=== PATIENT | female | born 1930 | race Caucasian/White ===

== ENCOUNTER 2017-10-10 14:31 | Emergency (ER) | payer OTHER ==
--- NOTE | 2017-10-10 15:21 | PDOC ---
History of Present Illness - General Chief Complaint: Lightheaded Stated Complaint: DEHYDRATION Time Seen by Provider: 10/10/17 15:12 - History of Present Illness Initial Comments: 10/10/17 18:24 The patient is an 87 year old female with a history of Dementia, Breast CA, Osteoarthritis who presents for evaluation from her [place] for dehydration. [facility] paperwork, the patient experienced an episode of lightheadedness and orthostatic hypotension at her NH home today and was sent to the ER for concerns for dehydration. The patient is uncooperative on exam and denies any current symptoms claiming she does not know why she was sent to the ED. The patient refuses to cooperate with history taking and review of systems at this time. Past History - Past Medical History Allergies/Adverse Reactions: Allergies Allergy/AdvReac Type Severity Reaction Status Date / Time No Known Allergies Allergy Verified 10/10/17 15:25 Review of Systems - Review of Systems Able to Perform ROS?: No (Patient Refusal) *Physical Exam - Physical Exam Comments: 10/10/17 18:27 General Appearance: Nourished. No Apparent Distress HEENT: EOMI, JAKE. Neck: No Cervical Lymphadenopathy Respiratory/Chest: Lungs Clear, Normal Breath Sounds. No Crackles, Rales, Rhonchi, Wheezing Cardiovascular: Regular Rhythm, Regular Rate. No Murmur, Gallops, Rubs Gastrointestinal/Abdominal: Normal Bowel Sounds, Soft. No Guarding, Rebound, Tenderness Musculoskeletal: No CVA Tenderness Extremity: Normal Capillary Refill Integumentary: Normal Color, Dry, Warm Neurologic: Oriented x2, Alert, Normal Mood/Affect, Normal Response, Medical Decision Making - Medical Decision Making 10/10/17 18:27 The patient is an 87 year old female with a history of Dementia, Breast CA, Osteoarthritis who presents for evaluation from her [place] for dehydration. The patient is uncooperative with exam and refusing any treatment at this time. The patient is normotensive here in the ED and able to ambulate. The patient is refusing to cooperate with treatment at this time and denying any complaints. Given the patient's clinical presentation and refusal with treatment, we do not believe she requires further work up at this time. We discussed the case with Dr. Casanova who agrees with the plan and will evaluate the patient on an outpatient basis. We discussed the case with the patient's daughter who is also comfortable with the patient being discharged home at this time. *DC/Admit/Observation/Transfer Diagnosis at time of Disposition: Dehydration - Discharge Dispostion Disposition: HOME Condition at time of disposition: Stable Decision to Admit order: No - Referrals Referrals: Adalgisa Mcdermott [Primary Care Provider] - - Patient Instructions Printed Discharge Instructions: DI for Dehydration -- Adult Additional Instructions: Please return to the ER if you experience concerning or worsening symptoms including worsening weakness or dizziness, chest pain, or difficulty breathing. Please continue to maintain your fluid intake. Please make sure that you call to schedule a follow up appointment with your primary care provider within 1-2 days to discuss your ER visit and further management of your symptoms. - Post Discharge Activity
[2017-10-10 15:25] VITALS: BP 127/77; PULSE 78; TEMP 99; BMI 22.4
--- NOTE | 2017-10-10 15:45 | PDOC ---
Attending Attestation - HPI HPI: 10/10/17 17:40 The patient is a 87 year old female, with a significant past medical history of dementia, who presents to the emergency department from [facility] for evaluation of recorded orthostatic hypotension and possible dehydration earlier today. Patient reports pain with urination, but denies any hematuria, frequency, or urgency. Patient has no other complaints at this time and states she would like to go home. Allergies: NKDA - Physicial Exam PE: 10/10/17 17:47 GENERAL: The patient is in no acute distress. Awake, alert, orientedx1, combative. HEAD: Normal with no signs of trauma. Patient refuses PE, thus physical examination limited. - Medical Decision Making 10/10/17 17:44 Documentation prepared by Kelsey Caruso, acting as medical data analyst for Seema Oh MD. <Kelsey Caruso - Last Filed: 10/10/17 17:54> - Resident Resident Name: Lester Singh - ED Attending Attestation I have performed the following: I have examined & evaluated the patient, The case was reviewed & discussed with the resident, I agree w/resident's findings & plan, Exceptions are as noted - Medical Decision Making Ms Cannon presents to the ER and is currently not receptive to any medical assessment or intervention Pt charting, pt was noted to become dizzy when standing and was noted to have a low blood pressure In the ER, BP nml Her next of kin was contacted We have asked this person to speak with Ms Cannon She is also unable to convince her to comply with vitals, EKG, further medical assessment Pt states that she does not need any of these studies Pt family member states pt should be discharged back to [facility] Call placed to Dr. Rodas She agrees with discharge Clinical impression: ? vasovagal episode, initial presentation <Seema Oh - Last Filed: 10/15/17 19:56>
== END 2017-10-10 19:45 | disposition home or self-care (01) ==
LOC: JER 14:31
DX: E86.0 Dehydration (principal); Z85.3 Personal history of malignant neoplasm of breast; M19.90 Unspecified osteoarthritis, unspecified site; F03.90 Unspecified dementia, unspecified severity, without behavioral disturbance, psychotic disturbance, mood disturbance, and anxiety
CPT/HCPCS: 99281-25

== ENCOUNTER 2018-10-10 10:35 | Emergency (ER) | payer OTHER ==
[2018-10-10 10:52] VITALS: PULSE 80; BMI 23.0
[2018-10-10 12:34] VITALS: BP 102/65; TEMP 99.9
[2018-10-10] MEDS ORDERED: HALOPERIDOL LACTATE 5 MG/ML IM ONE ×2 (12:37→12:55)
[2018-10-10 12:38] LABS: BASO % 1.4 % (0-2.0); EOS % 2.4 % (0-4.5); HEMATOCRIT 42.7 % (32.4-45.2); HEMOGLOBIN 14.5 GM/dL (10.7-15.3); LYMPH % 21.4 % (8-40); MCH 31.4 pg (25.7-33.7); MEAN CELL VOLUME 92.4 fl (80-96); MEAN PLT VOLUME 7.6 fl (7.5-11.1); MONO % 7.8 % (3.8-10.2); PLATELET COUNT 425 K/MM3 (134-434); RBC 4.61 M/mm3 (3.60-5.2); RDW 12.7 % (11.6-15.6)
--- NOTE | 2018-10-10 12:42 | PDOC ---
Documentation entered by Devonte Bills SCRIBE, acting as scribe for Seema Oh MD. Seema Oh MD: This documentation has been prepared by the Sanju ballesteros Nirvannie, SCRIBE, under my direction and personally reviewed by me in its entirety. I confirm that the documentation accurately reflects all work, treatment, procedures, and medical decision making performed by me. History of Present Illness - General Chief Complaint: Nausea/Vomiting Stated Complaint: VOMITING, ALERTED MENTAL STATUS Time Seen by Provider: 10/10/18 10:58 History Source: Patient Exam Limitations: No Limitations - History of Present Illness Initial Comments: The patient is a 88 year old female, with a significant past medical history of Frequent UTI, Dementia, Breast CA, Osteoarthritis, who presents to the emergency department via EMS from [place] with, cough, nausea, and vomiting. As per facility, patient is experiencing nausea with emesis similar to past UTIs. While in the ED, patients only complaint is a cough and is unaware of nausea and vomiting. History is limited secondary to patients clinical condition. She denies recent fevers, chills, headache or dizziness. She denies recent nausea, vomit, diarrhea or constipation. She denies recent dysuria, frequency, urgency or hematuria. She denies recent chest pain or shortness of breath. Allergies: [facility] Primary Care Physician: Dr. Mcdermott Past History - Past Medical History Allergies/Adverse Reactions: Allergies Allergy/AdvReac Type Severity Reaction Status Date / Time No Known Allergies Allergy Verified 10/10/18 10:40 Home Medications: Ambulatory Orders Aspirin 81 mg PO DAILY 10/10/18 Azithromycin [Zithromax 250mg Tablets -] 250 mg PO UTDICT #6 tab 10/10/18 Docusate Sodium [Colace -] 300 mg PO HS 10/10/18 Ergocalciferol (Vitamin D2) [Vitamin D2] 50,000 unit PO WEEKLY 10/10/18 Guaifenesin [Mucinex -] 600 mg PO BID 10/10/18 Multivitamin with Iron [Daily Felicity with Iron] 1 each PO DAILY 10/10/18 Nitrofurantoin Monohyd/M-Cryst [Macrobid -] 100 mg PO BID 10/10/18 Saliva Stimulant Comb. No.7 [Biotene Oralbalance] 42 gm MM BID 10/10/18 Sennosides [Senna] 2 tab PO HS 10/10/18 Cancer: Yes (bilat mastectomies) COPD: No - Immunization History Immunization Up to Date: No - Suicide/Smoking/Psychosocial Hx Smoking History: Unknown if ever smoked Have you smoked in the past 12 months: No Hx Alcohol Use: No Drug/Substance Use Hx: No Substance Use Type: None Review of Systems - Review of Systems Able to Perform ROS?: No Comments:: 10/10/18 11:52 Unable to perform ROS secondary to patient's clinical condition. *Physical Exam - Vital Signs Last Vital Signs Temp Pulse Resp BP Pulse Ox 99 F 80 20 114/72 96 10/10/18 10:39 10/10/18 10:39 10/10/18 10:39 10/10/18 10:39 10/10/18 10:39 - Physical Exam Comments: 10/10/18 11:52 GENERAL: The patient is in no acute distress. HEAD: Normal EYES: PERRLA, EOMI, sclera anicteric, conjunctiva clear. ENT: Ears normal, nares patent, oropharynx clear without exudates. Dry mucous membranes. Anna oral skin is different texture/taut NECK: Normal range of motion, supple LUNGS: Coarse and rhoncherous breath sounds, (+) cough, No wheezes, and no crackles. HEART: Regular rate and rhythm, normal S1 and S2 without murmur, rub or gallop. ABDOMEN: Soft, nontender, normoactive bowel sounds. No guarding, no rebound. EXTREMITIES: Normal range of motion, no edema. NEUROLOGICAL: Cranial nerves II through XII grossly intact. Normal speech. No focal neurological deficits. MUSCULOSKELETAL: Back non-tender to palpation SKIN: Warm, Dry, no erythema or rash ED Treatment Course - LABORATORY CBC & Chemistry Diagram: 10/10/18 12:00 10/10/18 12:21 - RADIOLOGY Radiology Studies Ordered: Category Date Time Status CHEST X-RAY PORTABLE* [RAD] Stat Radiology 10/10/18 11:05 Ordered Medical Decision Making - Medical Decision Making 10/10/18 11:33 Ms Cannon Is an 88 yo F h/o advanced dementia, h/o breast cancer s/p bilateral mastectomies, h/o osteoarthritis. Pt presents to the ER from [facility] due to increased confusion Pt was noted to have multiple episodes of vomiting Pt is a poor historian She tells me that she has no pain, and has had no vomiting (??) Pt tells me she is not sure if she has had a fever She denies pain in any location 88 yo F h/o dementia presenting with increasing confusion Pt temp 99 DD includes: Progression of dementia, Intracranial pathology, acute infection (UTI vs. Pneumonia, no evidence of cellulitis) Will do: Labs Rectal temp IVF CXR UA Re Assess 10/10/18 12:39 Pt fighting nursing staff She is agitated and hitting nurse EKG - NSR rate of 76 bpm, LAD, no st elevation or depression t wave inversion v2 ,v3, t waves otherwise upright, Q wave inferiorly 10/10/18 13:30 Laboratory Tests 10/10/18 10/10/18 10/10/18 12:00 12:00 12:00 WBC 10.0 Hgb 14.5 Hct 42.7 Plt Count 425 INR 1.09 Sodium Potassium Chloride Carbon Dioxide Anion Gap BUN Creatinine Random Glucose Lactic Acid 2.4 H* Troponin I 10/10/18 12:21 WBC Hgb Hct Plt Count INR Sodium 141 Potassium 4.4 Chloride 108 H Carbon Dioxide 26 Anion Gap 7 L BUN 22 H Creatinine 1.1 Random Glucose 93 Lactic Acid Troponin I 0.02 Pt given Haldol 2.5mg IM Pt seems more calm but still agitated when nursing staff interacts with her UA pending Straight cath now 10/10/18 14:51 Laboratory Tests 10/10/18 12:21 Total Amylase 84 Lipase 216 10/10/18 16:[address] Call placed to Dr Casanova 10/10/18 16:17 Pt can be discharged to [facility] Can follow up with PMD Will po challenge Will give Azithromycin po (pt does have a cough, low grade temp) Will trial her with PO abx Return to the ER for any new symptoms, high fevers, worsening symptoms 10/10/18 18:55 Pt was retching upon EMS arrival Call placed to Dr Casanova Plan per Dr Casanova is discharge to [facility] She will see her tomorrow Pt already given antibiotics and zofran Per staff at [facility], pt is supposed to be on Macrobid for UTI Pt has had ? compliance *DC/Admit/Observation/Transfer Diagnosis at time of Disposition: Nausea, Cough - Discharge Dispostion Disposition: [facility]M FACILITY Condition at time of disposition: Stable Decision to Admit order: No - Prescriptions Prescriptions: Azithromycin [Zithromax 250mg Tablets -] 250 mg PO UTDICT #6 tab - Referrals Referrals: Adalgisa Mcdermott [Primary Care Provider] - - Patient Instructions Printed Discharge Instructions: DI for Cough -- Adult, DI for Nausea -- Adult Additional Instructions: Thank you for sending Ms. Cannon to the ER She had no vomiting while in the ER She did intermittently cough Her labs were at her baseline Her chest x ray showed no pneumonia (Please review all her results, included with discharge papers) Please: Give Azithromycin 250mg po daily x 5 days Give Augmentin 875/125 po BID x 5 days Give Zofran as needed for nausea Monitor for fevers Return to the ER for worsening symptoms - high fevers, persistent vomiting, diarrhea, inability to tolerate foods or drink - Post Discharge Activity
[2018-10-10 12:50] LABS: INR 1.09 (0.83-1.09); PROTHROMBIN TIME (PATIENT) 12.9 SEC (9.7-13.0)
[2018-10-10 12:53] LABS: ACTIVATED PTT 27.9 SECONDS (25.2-36.5)
--- NOTE | 2018-10-10 13:09 | EKG ---
Test Reason : Blood Pressure : / mmHG Vent. Rate : 076 BPM Atrial Rate : 076 BPM P-R Int : 198 ms QRS Dur : 076 ms QT Int : 412 ms P-R-T Axes : 025 -58 041 degrees QTc Int : 463 ms NORMAL SINUS RHYTHM LEFT AXIS DEVIATION INFERIOR INFARCT , AGE UNDETERMINED ANTERIOR INFARCT , AGE UNDETERMINED ABNORMAL ECG NO PREVIOUS ECGS AVAILABLE Confirmed by ASHKAN OROURKE MD ([id number]) on 10/10/2018 1:09:36 PM Referred By: Confirmed By:ASHKAN OROURKE MD
[2018-10-10 13:13] LABS: ALBUMIN 3.3 g/dl (3.4-5.0); BILIRUBIN,TOTAL 0.4 mg/dL (0.2-1); CALCIUM 9.7 mg/dL (8.5-10.1); CREATININE 1.1 mg/dL (0.55-1.3); POTASSIUM 4.4 mmol/L (3.5-5.1); TOT PROT 7.3 g/dl (6.4-8.2)
[2018-10-10 14:14] LABS: PH,URINE 6.5 (5.0-8.0); URINE APPEARANCE CLEAR; URINE BILIRUBIN NEGATIVE (NEGATIVE); URINE COLOR YELLOW; URINE GLUCOSE (UA) NEGATIVE (NEGATIVE); URINE KETONE NEGATIVE (NEGATIVE); URINE LEUK ESTERASE NEGATIVE (NEGATIVE); URINE NITRITE NEGATIVE (NEGATIVE); URINE PROTEIN NEGATIVE (NEGATIVE); URINE UROBILINOGEN 0.2 mg/dL (0.2-1.0)
[2018-10-10] MEDS ORDERED: AZITHROMYCIN IVPB 250 MG in DEXTROSE 5%-WATER - 250 ML IVPB ONE (17:15)
[2018-10-10] MEDS ORDERED: CEFTRIAXONE 1 GM in DEXTROSE 5%-WATER - 50 ML IVPB ONE (17:15)
[2018-10-10] MEDS ORDERED: AZITHROMYCIN IVPB 500 MG/250 ML BAG IVPB ONE (17:55)
[2018-10-10] MEDS ORDERED: AZITHROMYCIN IVPB 500 MG in DEXTROSE 5%-WATER - 250 ML IVPB ONE (18:07)
[2018-10-10] MEDS ORDERED: ONDANSETRON *ODT* 4 MG TABLET SL ONE (18:54)
[2018-10-10] MEDS ORDERED: ONDANSETRON *ODT* 4 MG TABLET ONE (19:02)
== END 2018-10-10 19:00 ==
LOC: JER 10:35
PROC: 0T9B70Z Drainage of Bladder with Drainage Device, Via Natural or Artificial Opening (ICD-10-PCS; principal; 2018-10-10)
PROC: 3E023NZ Introduction of Analgesics, Hypnotics, Sedatives into Muscle, Percutaneous Approach (ICD-10-PCS; 2018-10-10)
PROC: 3E03329 Introduction of Other Anti-infective into Peripheral Vein, Percutaneous Approach (ICD-10-PCS; 2018-10-10)
PROC: 3E03329 Introduction of Other Anti-infective into Peripheral Vein, Percutaneous Approach (ICD-10-PCS; 2018-10-10)
DX: R05 Cough (principal); R11.0 Nausea; F03.90 Unspecified dementia, unspecified severity, without behavioral disturbance, psychotic disturbance, mood disturbance, and anxiety; Z85.3 Personal history of malignant neoplasm of breast; Z90.13 Acquired absence of bilateral breasts and nipples; Z87.440 Personal history of urinary (tract) infections
CPT/HCPCS: 36415; 71045-TC-FY; 80053; 81003; 82150; 82550; 82553; 83605; 83690; 84484; 85025; 85610; 85730; 87040; 87086; 87186; 93005; 93010; 99284-25; Q0162